=== PATIENT | male | born 1970 | race Two or more races ===

== ENCOUNTER 2020-09-10 08:47 | Day surgery (SDC) | payer OTHER ==
[2020-09-10] MEDS ORDERED: PERCOCET 5-3251 EACH PO (12:03)
== END 2020-09-10 16:20 | disposition home or self-care (01) ==
LOC: CIR.AMB 08:47
PROVIDERS: ATTEND Surgery
DX: K64.8 Other hemorrhoids (principal); K64.4 Residual hemorrhoidal skin tags; Z20.822 Contact with and (suspected) exposure to COVID-19